=== PATIENT | male | born 1975 | race Caucasian/White ===

== ENCOUNTER 2019-06-12 19:17 | Emergency (ER) | payer SELFPAY ==
[2019-06-12 19:26] VITALS: O2SAT 98
[2019-06-12 20:05] LABS: ACETAMINOPHEN < 10 ug/ml (10-30); SALICYLATE < 1.0 mg/dL (2-20)
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
[2019-06-12 20:13] LABS: Barbiturate,Urine NEGATIVE (NEGATIVE); Benzodiazepine,Urine NEGATIVE (NEGATIVE); Cocaine,Urine POSITIVE (NEGATIVE); Methadone,Urine NEGATIVE (NEGATIVE); Opiate,Urine POSITIVE (NEGATIVE); PCP,Urine NEGATIVE (NEGATIVE); THC,Urine POSITIVE (NEGATIVE)
[2019-06-12 20:40] LABS: Amphetamine,Urine POSITIVE (NEGATIVE)
[2019-06-12 21:00] VITALS: BP 144/100; PULSE 88
== END 2019-06-12 21:03 | disposition home or self-care (01) ==
LOC: ED 19:17
DX: Z02.89 Encounter for other administrative examinations (principal); F11.10 Opioid abuse, uncomplicated; F15.10 Other stimulant abuse, uncomplicated; F14.10 Cocaine abuse, uncomplicated
CPT/HCPCS: 36415; 80307; 93005; 99284; G0481; G0480